=== PATIENT | male | born 1985 | race Caucasian/White ===

== ENCOUNTER 2017-03-28 13:53 | Emergency (ER) | payer MEDICAID ==
[2017-03-28 13:57] VITALS: BP 121/67
--- NOTE | 2017-03-28 14:27 | XRAY Preliminary Report ---
Exam: XR Chest 2 View PA/LAT IMPRESSION: Normal 2-view chest radiography. [facility] SITE ID: [id number]
--- NOTE | 2017-03-28 14:30 | XRAY Report ---
EXAM: CHEST RADIOGRAPHY EXAM DATE: 03/28/2017 02:04 PM. CLINICAL HISTORY: PRODUCTIVE COUGH X 1 WEEK. COMPARISON: None. TECHNIQUE: 2 views. FINDINGS: Lungs/Pleura: Clear. No effusion or pneumothorax. Mediastinum: Heart and mediastinal contours are unremarkable. Other: None. IMPRESSION: Normal 2-view chest radiography. [facility] Referring Provider Line: [phone] SITE ID: [id number]
[2017-03-28] MEDS ORDERED: BENZONATATE 100 MG CAPSULE PO STA (15:23)
[2017-03-28] MEDS ORDERED: guaiFENesin/DEXTROMETHORPHAN 10 ML UDC PO STA (15:23)
[2017-03-28] MEDS ORDERED: guaiFENesin/DEXTROMETHORPHAN 10 ML UDC ONE (15:26)
[2017-03-28] MEDS ORDERED: BENZONATATE 100 MG CAPSULE PO ONE (15:26)
--- NOTE | 2017-03-28 15:44 | ED Physician Documentation ---
History of Present Illness - Stated complaint Stated Complaint: COUGH - Chief complaint Chief Complaint: General - Additonal information Additional information: hx from pt 32 healthy male cough and soa and wheeze for severla days no sick contact no travel no leg swelling Review of Systems Constitutional: denies: Fever, Chills Throat: denies: Sore throat Cardiac: denies: Chest pain / pressure, Pedal edema Respiratory: reports: Dyspnea, Cough, Wheezing GI: denies: Abdominal Pain, Vomiting, Diarrhea Endocrine: denies: Easy bruising / bleeding Immunocompromised: denies: Immunocompromised PD PAST MEDICAL HISTORY - Past Medical History Past Medical History: No Endocrine/Autoimmune: None - Past Surgical History Past Surgical History: No - Present Medications Home Medications: Ambulatory Orders Medication Instructions Recorded Confirmed Albuterol Sulfate [Proair Hfa 2 puffs INH Q4H PRN #1 inhaler 03/28/17 Inhaler] Benzonatate [Tessalon] 100 mg PO TID PRN #20 capsule 03/28/17 guaiFENesin/DEXTROMETHORPHAN 10 ml PO Q6H PRN #120 ml 03/28/17 [Robitussin Dm] - Allergies Allergies/Adverse Reactions: Allergies Allergy/AdvReac Type Severity Reaction Status Date / Time erythromycin base Allergy Rash Verified 03/28/17 13:58 - Social History Does the pt smoke?: Yes Smoking Status: Current every day smoker Does the pt drink ETOH?: No Does the pt have substance abuse?: No - Immunizations Immunizations are current?: Yes - POLST Patient has POLST: No PD ED PE NORMAL - Vitals Vital signs reviewed: Yes - General General: Alert and oriented X 3 - HEENT HEENT: Atraumatic - Neck Neck: Supple, no meningeal sign - Cardiac Cardiac: RRR - Respiratory Respiratory: No respiratory distress, Clear bilaterally (shallow but no wheeze or ronchi) - Derm Derm: Normal color - Extremities Extremities: No deformity, Normal ROM s pain, No edema, No calf tenderness / cord - Neuro Neuro: Alert and oriented X 3 Results - Vitals Vitals: Vital Signs - 24 hr 03/28/17 13:56 Temperature 36.3 C L Heart Rate 63 Respiratory 12 Rate Blood Pressure 121/67 O2 Saturation 100 Oxygen O2 Source Room air - Rads (name of study) CXR Radiology: See rad report (neg) Departure - Departure Disposition: 01 Home, Self Care Clinical Impression: Acute bronchitis Qualifiers: Bronchitis organism: unspecified organism Qualified Code(s): J20.9 - Acute bronchitis, unspecified Condition: Good Instructions: ED URI Viral W Wheezing Follow-Up: Corinna Mullins ARNP [Primary Care Provider] - Prescriptions: Albuterol Sulfate [Proair Hfa Inhaler] 2 puffs INH Q4H PRN #1 inhaler PRN Reason: Shortness Of Air/Wheezing guaiFENesin/DEXTROMETHORPHAN [Robitussin Dm] 10 ml PO Q6H PRN #120 ml PRN Reason: Cough Benzonatate [Tessalon] 100 mg PO TID PRN #20 capsule PRN Reason: to ease cough Comments: The xray was fine - no pneumonia Your respiratory infection is likely viral - this does not mean you are any less sick, but means antibiotics will not help Try the medications I prescribed to ease your symptoms If you smoke please stop Forms: Activity restrictions
== END 2017-03-28 15:53 | disposition home or self-care (01) ==
LOC: ED 13:53
DX: J20.9 Acute bronchitis, unspecified (principal); F17.200 Nicotine dependence, unspecified, uncomplicated
CPT/HCPCS: 71020; 99283; A9270

== ENCOUNTER 2018-10-01 19:16 | Emergency (ER) | payer MEDICAID ==
--- NOTE | 2018-10-01 20:00 | XRAY Report ---
Reason: Pain r/o crush injury Procedure Date: 10/01/2018 Accession Number: [id number] / [id number] Procedure: XR - Foot 3 View LT CPT Code: FULL RESULT: EXAM: LEFT FOOT RADIOGRAPHY EXAM DATE: 10/01/2018 07:35 PM. CLINICAL HISTORY: Pain r/o crush injury. COMPARISON: None. TECHNIQUE: 3 views. FINDINGS: Bones: First digit distal phalanx tuft horizontal fracture. Joints: Normal. No subluxations. Soft Tissues: Soft tissue swelling. IMPRESSION: First digit distal phalanx fracture [facility]
[2018-10-01] MEDS ORDERED: NAPROXEN 250 MG TABLET PO STA (20:18)
[2018-10-01] MEDS ORDERED: HYDROcod/ACETAM 5/325 MG TABLET PO STA (20:18)
--- NOTE | 2018-10-01 20:26 | ED Physician Documentation ---
PD HPI LOWER EXT INJURY - Stated complaint Stated Complaint: LT FOOT INJ - Chief complaint Chief Complaint: Ext Problem - History of Present Illness PD HPI LOW EXT INJURY LOCATION: Left, Ankle, Toe Type of injury: Blunt / blow Where injury occurred: Home Timing - onset: Today Timing - details: Abrupt onset Severity Comments: moderate Improved by: Rest, Immobilization Worsened by: Moving, Palpating Associated symptoms: Swelling, Discolored. No: Weakness, Numbness Contributing factors: No: Prior ortho surgery Similar symptoms before: No diagnosis Recently seen: Not recently seen Review of Systems Constitutional: denies: Fever, Chills Ears: denies: Ear pain Cardiac: denies: Chest pain / pressure GI: denies: Abdominal Pain Skin: denies: Rash Musculoskeletal: reports: Extremity pain, Joint pain Neurologic: denies: Generalized weakness PD PAST MEDICAL HISTORY - Past Medical History Past Medical History: No Endocrine/Autoimmune: None - Past Surgical History Past Surgical History: No - Present Medications Home Medications: Ambulatory Orders Medication Instructions Recorded Confirmed Hydrocodone/Acetaminophen [[place] 1 each PO Q6HR PRN #5 tablet 10/01/18 5-325 Tablet] - Allergies Allergies/Adverse Reactions: Allergies Allergy/AdvReac Type Severity Reaction Status Date / Time erythromycin base Allergy Rash Verified 10/01/18 19:27 - Social History Does the pt smoke?: Yes Smoking Status: Current every day smoker Does the pt drink ETOH?: No Does the pt have substance abuse?: No - Immunizations Immunizations are current?: Yes - POLST Patient has POLST: No PD ED PE NORMAL - General General: Alert and oriented X 3, No acute distress - HEENT HEENT: Atraumatic, PERRL, EOMI, Ears normal - Neck Neck: Supple, no meningeal sign - Derm Derm: Normal color - Extremities Extremities: No: No tenderness to palpate (The left great toe is swollen and ecchymosis and tender to palpation. The patient has no other area of tenderness throughout his foot. The patient is a normal cap refill and a normal dorsalis pedis pulse. There is no tenderness in the ankle or proximal fibular head. Normal range of motion. No other associated injury), Normal ROM s pain - Neuro Neuro: Alert and oriented X 3, Normal speech Results - Vitals Vitals: Vital Signs - 24 hr 10/01/18 19:24 Temperature 37.1 C Heart Rate 82 Respiratory 18 Rate Blood Pressure 153/85 H O2 Saturation 97 Oxygen O2 Source Room air - Rads (name of study) XR foot Radiology: Final report received (IMPRESSION: First digit distal phalanx fracture ) PD MEDICAL DECISION MAKING - ED course ED course: The patient's injury will be patel taped and he will be given a postop shoe. The patient will follow up with orthopedics for recheck. I discussed warning signs and recommended return to the emergency department for any worsening or any concerns. Departure - Departure Disposition: Home, Self Care Clinical Impression: Toe fracture, left Qualifiers: Encounter type: initial encounter Toe: great toe Fracture type: closed Phalanx: distal Fracture alignment: nondisplaced Qualified Code(s): S92.425A - Nondisplaced fracture of distal phalanx of left great toe, initial encounter for closed fracture Condition: Good Instructions: ED Fx Toe Closed Follow-Up: [facility] [Provider Group] - Within 1 week (Call to schedule a follow up appointment ) Prescriptions: Hydrocodone/Acetaminophen [[place] 5-325 Tablet] 1 each PO Q6HR PRN #5 tablet PRN Reason: Pain Comments: Please return to the emergency department for worsening symptoms or any concerns
[2018-10-01 20:37] VITALS: BP 140/86
== END 2018-10-01 20:36 | disposition home or self-care (01) ==
LOC: ED 19:16
DX: S92.425A Nondisplaced fracture of distal phalanx of left great toe, initial encounter for closed fracture (principal); W20.8XXA Other cause of strike by thrown, projected or falling object, initial encounter; Y99.0 Civilian activity done for income or pay; F17.200 Nicotine dependence, unspecified, uncomplicated
CPT/HCPCS: 99283